=== PATIENT | female | born 1970 | race Caucasian/White ===

== ENCOUNTER 2023-01-08 08:03 | Outpatient (REF) | payer OTHER, SELFPAY ==
--- NOTE | ~2023-01-08 | MM_ITS ---
EXAMINATION: MM DIAGNOSTIC DIGITAL BREAST TOMOSYNTHESIS, LEFT US DIAGNOSTIC ULTRASOUND BREAST, LEFT CLINICAL INFORMATION: 52-year-old recall from outside screening mammography demonstrating a new small nodular asymmetry outer left breast around 4 cm from nipple. Personal history contralateral right breast cancer approximately 11 years ago. COMPARISON: Outside mammography from [facility] (2-D images): 01/01/2023, 10/12/2021, 08/30/2020. TECHNIQUE: Digital breast tomosynthesis is performed. 2D images are generated from the tomosynthesis. The following views are obtained: Spot CC, spot ML. Ultrasound left breast is targeted to the outer breast using grayscale imaging and color Doppler without and with harmonics. FINDINGS: There are scattered areas of fibroglandular density (ACR BI-RADS breast composition Category b). The additional spot views confirm a circumscribed 5 mm nodule 2:00 position approximately 5 cm from nipple. No spiculation. No architectural abnormality. Ultrasound demonstrates a circumscribed nearly anechoic nodule 3:00 position 5 cm from nipple measuring approximately 5 x 3 x 4 mm. There is a tiny similar adjacent satellite nodule slightly more posteriorly. There is subtle increased through-transmission of sound on real-time imaging. Some low-level internal echoes are present. No internal septation or solid component. No peripheral or internal color flow. Results are discussed with the patient at time of visit. The finding for recall has benign appearance, suspect mildly complicated cyst possibly with apocrine metaplasia. Management options discussed. Short interval six-month follow-up is suggested, although lesion is amenable to ultrasound-guided biopsy if patient desires. MM/MM tomosynthesis added views L IMPRESSION: -Benign-appearing circumscribed nodule lateral left breast 5 mm, likely mildly complicated cyst. -Tiny adjacent satellite nodule slightly more posterior. ASSESSMENT: BI-RADS 3: Probably Benign RECOMMENDATION: Targeted ultrasound left breast in 6 months. This patient's information was entered into a reminder system with a target due date for their next mammogram.
== END 2023-01-08 08:04 | disposition home or self-care (01) ==
LOC: HO.MAMMO 08:03
PROVIDERS: PCP Family Medicine; Visit Provider Family Medicine
DX: R92.8 Other abnormal and inconclusive findings on diagnostic imaging of breast (principal)
CPT/HCPCS: 76642; 77061; 77065